=== PATIENT | male | born 1965 | race Caucasian/White ===

== ENCOUNTER → 2017-11-22 01:41 | Outpatient (CLI) | payer BC, SELFPAY ==
[2017-11-23 12:30] LABS: PSA, Screening 3.2 ng/ml (0-3.5)
== END ==
PROVIDERS: PCP Emergency Medicine; Visit Provider Emergency Medicine
DX: Z12.5 Encounter for screening for malignant neoplasm of prostate (principal); N40.0 Benign prostatic hyperplasia without lower urinary tract symptoms
CPT/HCPCS: 36415; 84153

== ENCOUNTER 2018-04-06 02:33 | Outpatient (CLI) | payer BC, SELFPAY ==
[2018-04-09 11:31] LABS: PSA, Diagnostic 3.3 ng/ml (0-3.5)
== END 2018-04-06 02:53 ==
PROVIDERS: PCP Emergency Medicine; Visit Provider Emergency Medicine
DX: R97.20 Elevated prostate specific antigen [PSA] (principal)
CPT/HCPCS: 36415; 84153

== ENCOUNTER 2018-06-18 13:16 | Day surgery (SDC) | payer BC, SELFPAY ==
[2018-06-15 15:47] VITALS: BP 132/67; PULSE 55; RESP 16; TEMP 35.5; O2SAT 100
[2018-06-18 13:38] VITALS: BP 123/72; PULSE 62; RESP 16; TEMP 36.6; O2SAT 100
[2018-06-18] MEDS: Lactated Ringers 1,000 ML 80 ML IV ×2 (13:51→14:26)
--- NOTE | 2018-06-18 15:23 | W.COLOREPORT ---
Date of service: 06/18/18 Time of Service: 14:55 Colonoscopy Report Date of procedure: 06/18/18 Pre-op diagnosis general: Colon Cancer screening Post-op diagnosis procedure note: same Procedure: Colonoscopy Surgeon: Evangelina Pinto Anesthesia proc note operative: other (General/ ASA 1 / Ney Rich, VANITA) Estimated blood loss (mL): 0 Pathology: none sent Complications: None Disposition: same day Indications: Mr. Harley is a pleasant 53 year old male who was seen in the office for a colonoscopy. This will be his first Colonoscopy. Risks, benefits and complications have been reviewed. Complications include but are not limited to bleeding, pain, perforation, missed small lesion/polyp, sore throat, aspiration and adverse reaction to the medications. Questions were entertained and answered to their satisfaction and they wished to proceed. No guarantees were given or implied. Prep: Miralax/Dulcolax Procedure Start Time: 14:55 Procedure End Time: 15:16 Retraction Time: 12 minutes Findings: Normal colon Procedure Description: After informed consent was obtained the patient was taken to the procedure room and placed in a left decubitous position. Monitors were applied and a time out was done. The patients name, date of , procedure, allergies to medications and metal in their body was reviewed. The patient was then sedated. Once sedated and comfortable a rectal exam was done. External exam was normal. Internal exam revealed a normal sphincter tone and no palpable masses. The prostate felt smooth. The scope was then introduced and retro-flexed. No internal hemorrhoids were identified. There were no masses and no polyps in the rectum. The scope was then advanced to the cecum without difficulty. The TI and appendiceal orifice were identified. The prep was good. The scope was then slowly retracted over 12 minutes back into the rectum. There were no polyps and no diverticula. The scope was removed and the patient was woken up and taken back to Same day surgery in stable condition. The patient tolerated the procedure well and there were no immediate complications. Follow up: The patient should follow up in 10 years unless they develop changes in bowel habits or other new gastrointestinal complaints.
--- NOTE | 2018-06-18 15:28 | PDOC.DSDIS_ITS ---
Discharge Plan Disposition Patient Disposition: HOME Condition: Good Discharge Details Reason For Visit: Colon Cancer Screening Attending Provider: Evangelina Pinto Primary Care Provider: Celestine Flores Home Meds and New Rx's Prescriptions: Continued aspirin [Adult Aspirin Regimen] 81 mg tablet,delayed release (DR/EC) 81 mg PO DAILY RF: 0 omega-3 fatty acids [Fish Oil Concentrate] 1,000 mg capsule 1,000 mg PO DAILY RF: 0 Discontinued bisacodyl [Dulcolax (bisacodyl)] 5 mg tablet,delayed release (DR/EC) 5 mg PO ONCE Qty: 4 RF: 0 polyethylene glycol 3350 17 gram/dose powder 238 g PO ONCE Qty: 238 RF: 0 Discharge Instructions Instructions: Colonoscopy (DC) Additional Instructions: Findings: normal large bowel Follow up: 10 years Please call if you develop: fevers >101.5 Nausea or Vomiting Abdominal pain that is not transient DAY SURGERY UNIT POST COLONOSCOPY INSTRUCTIONS 1. Because there will be medication in your system for the next 24 hours, you may feel a little sleepy. Your coordination will be affected. Therefore: a. Do not drive or operate dangerous equipment for 24 hours. b. Do not drink alcohol beverages for 24 hours (not even beer). c. Plan to go home and rest for the day. 2. Generally there are no restrictions on your activity after a day or so has gone by, but you may feel a bit fatigued for a few days. 3 After you arrive home you may have a light meal and return to a normal diet as you can tolerate it without feeling sick to your stomach. 4. After surgery, you may feel pain or discomfort. This should be only tra nsient, but if it persists please contact your doctor. 5. If there are any questions regarding the findings of your procedure, please feel free to contact your doctor. 6. If you are unable to contact your doctor with a problem, contact the hospital at [phone]. 7. Continue all your regular medications unless directed otherwise. I understand the above instructions and have no questions. Signature of Patient or Responsible Adult Escort Date/Time Name of Responsible Adult Escort Signature of Nurse Date/Time Activity:: Activity as Tolerated Diet:: As Tolerated DS: Diagnosis Discharge Diagnosis (1) S/P colonoscopy: Status: Acute
== END 2018-06-18 16:18 | disposition home or self-care (01) ==
PROVIDERS: PCP Emergency Medicine; Visit Provider Surgery
PROC: 0DJD8ZZ Inspection of Lower Intestinal Tract, Via Natural or Artificial Opening Endoscopic (ICD-10-PCS; CPT 45378; principal; 2018-06-18 13:45)
DX: Z12.11 Encounter for screening for malignant neoplasm of colon (principal)
CPT/HCPCS: 45378

== ENCOUNTER 2019-11-15 03:37 | Outpatient (CLI) | payer BC, SELFPAY ==
[2019-11-15 12:36] LABS: Calculated LDL 167 mg/dL (<100); Cholesterol 239 mg/dL (<200); HDL Cholesterol 56 mg/dL (40-60); Triglyceride 82 mg/dL (<150)
== END 2019-11-15 03:57 ==
LOC: LBO 03:37 → LOS 11:58
PROVIDERS: PCP Emergency Medicine; Visit Provider Emergency Medicine
DX: Z00.00 Encounter for general adult medical examination without abnormal findings (principal); Z13.220 Encounter for screening for lipoid disorders; Z12.5 Encounter for screening for malignant neoplasm of prostate
CPT/HCPCS: 36415; 80061; 84153

== ENCOUNTER 2021-05-11 02:08 | Outpatient (CLI) | payer BC, SELFPAY ==
[2021-05-11 08:53] LABS: Calculated LDL 166 mg/dL (<100); Cholesterol 231 mg/dL (<200); HDL Cholesterol 43 mg/dL (40-60); Triglyceride 113 mg/dL (<150)
[2021-05-11 18:53] LABS: PSA, Screening 3.7 ng/mL (0.0-3.5)
== END 2021-05-11 02:09 | disposition home or self-care (01) ==
LOC: LBO 02:09
PROVIDERS: PCP Family Medicine; Visit Provider Emergency Medicine
DX: E78.5 Hyperlipidemia, unspecified (principal); R97.20 Elevated prostate specific antigen [PSA]; Z12.5 Encounter for screening for malignant neoplasm of prostate
CPT/HCPCS: 36415; 80061; 84153

== ENCOUNTER 2022-06-24 02:54 | Outpatient (CLI) | payer BC, SELFPAY ==
[2022-06-24 17:07] LABS: ALT 28 U/L (16-63); AST 20 U/L (15-37); Albumin 4.6 g/dL (3.4-5.0); Alkaline Phosphatase 54 U/L (46-116); Anion Gap 9.5 mmol/L (3-11); BUN 20 mg/dL (7-18); Bilirubin, Total 0.9 mg/dL (0.2-1.0); CO2 25.5 mmol/L (21.0-32.0); CREATININE 1.1 mg/dL (0.70-1.30); Calcium 9.7 mg/dL (8.5-10.1); Calculated LDL 98 mg/dL (<100); Chloride 102 mmol/L (98-107); Cholesterol 164 mg/dL (<200); Estimated GFR 78.79 (mL/min/1.73m2); Glucose 86 mg/dL (74-106); HDL Cholesterol 58 mg/dL (40-60); Potassium 3.7 mmol/L (3.5-5.1); Sodium 137 mmol/L (136-145); Total Protein 8.1 g/dL (6.4-8.2); Triglyceride 43 mg/dL (<150)
== END 2022-06-24 02:55 | disposition home or self-care (01) ==
LOC: LBO 02:54
PROVIDERS: PCP Nurse Practitioner Family; Visit Provider Nurse Practitioner Family
DX: E78.5 Hyperlipidemia, unspecified (principal)
CPT/HCPCS: 36415; 80053; 80061

== ENCOUNTER 2022-11-01 04:12 | Outpatient (CLI) | payer BC, SELFPAY ==
[2022-11-01 19:35] LABS: PSA, Screening 4.4 ng/mL (<=3.5)
== END 2022-11-01 04:13 | disposition home or self-care (01) ==
LOC: LBO 04:14
PROVIDERS: PCP Nurse Practitioner Family; Visit Provider Nurse Practitioner Gerontology
DX: R97.20 Elevated prostate specific antigen [PSA] (principal); Z12.5 Encounter for screening for malignant neoplasm of prostate
CPT/HCPCS: 36415; 84153

== ENCOUNTER 2023-05-15 03:04 | Outpatient (CLI) | payer BC, SELFPAY ==
[2023-05-15 16:59] LABS: ALT 30 U/L (16-63); AST 17 U/L (15-37); Albumin 4.3 g/dL (3.4-5.0); Alkaline Phosphatase 54 U/L (46-116); Anion Gap 7.4 mmol/L (3-11); BUN 18 mg/dL (7-18); Bilirubin, Total 0.5 mg/dL (0.2-1.0); CO2 29.6 mmol/L (21.0-32.0); CREATININE 0.9 mg/dL (0.70-1.30); Calcium 9.3 mg/dL (8.5-10.1); Calculated LDL 88 mg/dL (<100); Chloride 107 mmol/L (98-107); Cholesterol 149 mg/dL (<200); Estimated GFR 99.62 (mL/min/1.73m2); Glucose 90 mg/dL (74-106); HDL Cholesterol 56 mg/dL (40-60); Potassium 4.1 mmol/L (3.5-5.1); Sodium 144 mmol/L (136-145); Total Protein 7.7 g/dL (6.4-8.2); Triglyceride 26 mg/dL (<150)
[2023-05-16 18:42] LABS: PSA, Screening 4.5 ng/mL (<=3.5)
== END 2023-05-15 03:05 | disposition home or self-care (01) ==
LOC: LBO 03:04
PROVIDERS: PCP Nurse Practitioner Family; Visit Provider Nurse Practitioner Gerontology
DX: E78.5 Hyperlipidemia, unspecified (principal); R97.20 Elevated prostate specific antigen [PSA]; Z12.5 Encounter for screening for malignant neoplasm of prostate
CPT/HCPCS: 36415; 80053; 80061; 84153

== ENCOUNTER 2023-07-25 11:30 | Outpatient (REF) | payer BC, SELFPAY ==
--- NOTE | 2023-07-25 11:20 | PROST_PTH ---
PATIENT: Diogo Marcus LOC: [facility] U#:[id number] AGE/SX: 58/M ROOM: RE07/25/[address]: Jean Marie Lim MD : [id number] BED: DIS: 07/25/2023 SPEC #: [id number] RECD: 07/25/23 17:25 STATUS: [facility] #: [id number] ELAYNE: 07/25/23 11:[address]: Jean Marie Lim DEPT: Surgical Specimen RECD BY: Brie Bansal ENTERED: 07/25/23 17:27 SP TYPE: PROST OTHR DR: Aris Chavez DNP Tissues: 1 - PROSTATE NEEDLE BIOPSY 2 - PROSTATE NEEDLE BIOPSY 3 - PROSTATE NEEDLE BIOPSY 4 - PROSTATE NEEDLE BIOPSY 5 - PROSTATE NEEDLE BIOPSY 6 - PROSTATE NEEDLE BIOPSY 7 - PROSTATE NEEDLE BIOPSY 8 - PROSTATE NEEDLE BIOPSY 9 - PROSTATE NEEDLE BIOPSY 10 - PROSTATE NEEDLE BIOPSY 11 - PROSTATE NEEDLE BIOPSY 12 - PROSTATE NEEDLE BIOPSY Procedures: GROSS AND MICRO LEVEL 4 IMMUNOPEROXIDASE STAIN Comments: [id number]
== END 2023-07-25 11:31 | disposition home or self-care (01) ==
LOC: LBN 11:30
PROVIDERS: PCP Nurse Practitioner Family; Visit Provider Urology
DX: C61 Malignant neoplasm of prostate (principal)
CPT/HCPCS: 88305; 88361

== ENCOUNTER → 2023-08-23 03:08 | Outpatient (CLI) | payer BC, SELFPAY ==
--- NOTE | 2023-08-23 06:15 | DI.NM_ITS ---
Exam(s) NM BONE SCAN WHOLE BODY GRP EXAM: SD BONE SCAN WHOLE BODY GRP CLINICAL HISTORY: baseline study,new dx prostate ca,c61. TECHNIQUE: Injected Dose: 26.8 mCi Tc-99m MDP Delayed Images: 2-3 hours. COMPARISON: No exams were available for comparison FINDINGS: There is a focus of increased uptake seen in the left side of the lumbar spine at L5 level which is m ost probably related to facet arthropathy. No other normal spinal uptake evident. No abnormal uptak e in the sacroiliac joints, pelvis, and hips. No abnormal uptake in the skull. No abnormal uptake i n the rib cages and scapulae. Some uptake around the knees is most probably degenerative. No other abnormal uptake in the lower ex tremities nor in the upper extremities. IMPRESSION: 1. Solitary focus of asymmetric abnormal uptake at left side of L5 level. This most probably related to left facet joint arthropathy. No evidence of obvious osseous metastatic disease. DATA REPOSITORY:
== END ==
PROVIDERS: PCP Nurse Practitioner Family; Visit Provider Urology
DX: C61 Malignant neoplasm of prostate (principal)
CPT/HCPCS: 78306

== ENCOUNTER → 2023-10-31 01:31 | Outpatient (CLI) | payer BC, SELFPAY ==
--- NOTE | 2023-10-31 08:13 | DI.RAD_ITS ---
Exam(s) XR CHEST 2V PA LATERAL EXAM: XR CHEST 2V PA LATERAL CLINICAL HISTORY: Malignant neoplasm of prostate, C61; preop eval for prostate ca surgery TECHNIQUE: 2D digital imaging was performed. Two views. COMPARISON: No exams were available for comparison FINDINGS: HEART: Normal size. Aorta: Not dilated. PULMONARY VASCULATURE: Normal. MEDIASTINUM: Unremarkable. LUNGS: Clear. PLEURAL SPACE: No pleural effusion or pneumothorax. BONE:Unremarkable for age. SOFT TISSUES: Unremarkable. IMPRESSION: No acute abnormality. DATA REPOSITORY: RADIATION DOSE DELIVERED:
== END ==
PROVIDERS: PCP Nurse Practitioner Family; Visit Provider Surgery
DX: C61 Malignant neoplasm of prostate (principal); Z01.818 Encounter for other preprocedural examination
CPT/HCPCS: 71046

== ENCOUNTER 2023-10-31 08:43 | Outpatient (REF) | payer BC, SELFPAY ==
[2023-10-31 09:42] LABS: Bilirubin Negative (Negative); Blood Negative (Negative); Clarity Clear (Clear); Glucose Negative (Negative); Ketones Negative (Negative); Leukocyte Esterase Negative (Negative); Nitrite Negative (Negative); Urobilinogen 0.2 mg/dL (Up to 0.2); pH 5.5 (5-8)
== END 2023-10-31 08:44 | disposition home or self-care (01) ==
LOC: LBN 08:43
PROVIDERS: PCP Nurse Practitioner Family; Visit Provider Surgery
DX: C61 Malignant neoplasm of prostate (principal)
CPT/HCPCS: 81003

== ENCOUNTER 2023-11-03 08:03 | Outpatient (CLI) | payer BC, SELFPAY ==
--- NOTE | 2023-11-03 08:00 | RT.EKG_ITS ---
APPROVED REPORT Exam: Resting ECG Reason for Exam: MALIGNANT NEOPLASM OF PROSTATE Patient Location: O HR:50 bpm ECG Measurements Heart Rate 50 AXIS IN 143 P 42 QRSd 102 QRS 31 QT 438 T 22 QTc 400 Conclusion Sinus rhythm...normal P axis, V-rate 50- 99 Normal Electrocardiogram
== END 2023-11-03 08:04 | disposition home or self-care (01) ==
PROVIDERS: PCP Nurse Practitioner Family; Visit Provider Surgery
DX: C61 Malignant neoplasm of prostate (principal)
CPT/HCPCS: 93005; 93010

== ENCOUNTER 2024-01-16 09:58 | Outpatient (CLI) | payer OTHER, SELFPAY ==
--- NOTE | 2024-01-16 10:00 | RT.EKG_ITS ---
APPROVED REPORT Exam: Resting ECG Reason for Exam: MALIGNANT NEOPLASM OF PROSTATE Patient Location: O HR:42 bpm ECG Measurements Heart Rate 42 AXIS CO 154 P 46 QRSd 100 QRS 55 QT 461 T 23 QTc 386 Conclusion Sinus bradycardia...rate< 50 Baseline wander in lead(s) V2 Otherwise normal ECG
== END 2024-01-16 09:59 | disposition home or self-care (01) ==
LOC: CARDOPNVT 09:58
PROVIDERS: PCP Nurse Practitioner Family; Visit Provider Surgery
DX: C61 Malignant neoplasm of prostate (principal)
CPT/HCPCS: 93005; 93010

== ENCOUNTER 2024-01-16 12:37 | Outpatient (REF) | payer OTHER, SELFPAY ==
[2024-01-16 12:06] LABS: Bilirubin Negative (Negative); Blood Negative (Negative); Clarity Clear (Clear); Glucose Negative (Negative); Ketones Negative (Negative); Leukocyte Esterase Negative (Negative); Nitrite Negative (Negative); Urobilinogen 0.2 mg/dL (Up to 0.2); pH 5.5 (5-8)
== END 2024-01-16 12:38 | disposition home or self-care (01) ==
LOC: LBN 12:37
PROVIDERS: PCP Nurse Practitioner Family; Visit Provider Surgery
DX: C61 Malignant neoplasm of prostate (principal)
CPT/HCPCS: 81003

== ENCOUNTER 2024-03-07 13:16 | Outpatient (REF) | payer OTHER, SELFPAY | END 2024-03-07 13:17 | disposition home or self-care (01) | LOC: LBN 13:16 | PROVIDERS: PCP Nurse Practitioner Family; Visit Provider Physician Assistant | DX: L98.9 Disorder of the skin and subcutaneous tissue, unspecified (principal); L03.019 Cellulitis of unspecified finger | CPT/HCPCS: 87070; 87205 ==

== ENCOUNTER 2024-05-08 01:15 | Outpatient (CLI) | payer OTHER, SELFPAY ==
[2024-05-08 14:32] LABS: ALT 21 U/L (16-63); AST 17 U/L (15-37); Albumin 4.3 g/dL (3.4-5.0); Alkaline Phosphatase 76 U/L (46-116); BUN 14 mg/dL (7-18); Bilirubin, Total 0.63 mg/dL (0.2-1.0); CREATININE 1.1 mg/dL (0.70-1.30); Calcium 8.9 mg/dL (8.5-10.1); Calculated LDL 110 mg/dL (<100); Chloride 104 mmol/L (98-107); Cholesterol 179 mg/dL (<200); Estimated GFR 77.81 (mL/min/1.73m2); Glucose 113 mg/dL (74-106); HDL Cholesterol 54 mg/dL (40-60); Potassium 3.8 mmol/L (3.5-5.1); Sodium 139 mmol/L (136-145); Total Protein 7.9 g/dL (6.4-8.2); Triglyceride 77 mg/dL (<150)
[2024-05-09 11:10] LABS: HBs Antibody, Quant <3.1 mIU/mL (See Note); Hep B Surface Ab Negative (See Note); Hepatitis B Core Antibody Negative (Negative); Hepatitis B Surface Antigen Negative (Negative)
[2024-05-09 11:13] LABS: HIV-1/2 Ag & Ab Screen Negative (Negative)
[2024-05-09 11:26] LABS: Hepatitis C Ab w Rflx HCV PCR Negative (Negative)
== END 2024-05-08 01:16 | disposition home or self-care (01) ==
PROVIDERS: PCP Nurse Practitioner Family; Visit Provider Nurse Practitioner Family
DX: E78.5 Hyperlipidemia, unspecified (principal); Z11.59 Encounter for screening for other viral diseases; Z11.4 Encounter for screening for human immunodeficiency virus [HIV]
CPT/HCPCS: 36415; 80053; 80061; 86704; 86706; 86803; 87340; 87389